=== PATIENT | female | born 1945 | race African-American/Black ===

== ENCOUNTER 2018-03-04 14:30 | Inpatient (IN) | payer MEDICARE, MEDICAID ==
[~2018-03-04] VITALS: Ht 160 cm; Wt 92.2 kg
[~2018-03-04 14:30] MED LIST: AMLO1TAB12 PO; AMLO1TAB15 PO; ASCO500T3 PO; ASPI-482 PO; CALC-77 PO; CHOL100013 PO; COLC0.6T34 PO; FLAX100017 PO; MIRA25TA PO
[2018-03-04] MEDS ORDERED: ACETAMINOPHEN 325 MG TABLET. PO ONE (16:00)
[2018-03-04] MEDS ORDERED: hydrALAZINE 10 MG TABLET PO ONE (16:15)
--- NOTE | 2018-03-04 16:30 | PHYS DOC ---
Past Medical History Past Medical History: Arthritis, High Cholesterol, Hypertension, Other Additional Past Medical Histor: gout, DJD Past Surgical History: , Other Additional Past Surgical Histo: bilateral bunionectomy Alcohol Use: None Drug Use: None Adult General Chief Complaint Chief Complaint: HYPERTENSION HPI HPI 72-year-old female presents to ER with complaints of waking this morning and having a frontal headache. Patient states she also had mild headache on Saturday which had subsided. Patient denies any headache history. Patient denies taking any [id number]-cto-[id number] medications for pain. Patient denies vision changes, dizziness, lightheadedness, confusion, or recent falls/injury. Patient denies chest pain or palpitations, swelling in extremities, shortness of air, or fever/ulcer. Patient reports she has not taken her daily 81 mg aspirin since last week as she had ran out. Patient reports on 12/30/17 she had spinal fusion at [facility] and developed a clot on her esophagus which had to removed. She reports at that time she had low K+. Pt reports at that time she was started on Cozaar 100mg for her HTN and her dose of Coreg was changed to 12.5mg BID. Review of Systems Review of Systems Constitutional: Denies fever or chills. Denies lethargy Eyes: Denies change in visual acuity, redness, or eye pain [] HENT: Denies nasal congestion or sore throat [] Respiratory: Denies cough or shortness of breath [] Cardiovascular: Denies CP/palpitations GI: Denies abdominal pain, nausea, vomiting, bloody stools or diarrhea [] : Denies dysuria or hematuria [] Musculoskeletal: Denies back pain or joint pain [] Integument: Denies rash or skin lesions [] Neurologic: Denies focal weakness or sensory changes. Denies dizziness/ lightheadedness. Reports frontal HERNANDEZ All other systems were reviewed and found to be within normal limits, except as documented in this note. Current Medications Current Medications Current Medications Medications (Trade) Dose Ordered Sig/Yaritza Start Time Stop Time Status Last Admin Dose Admin Acetaminophen (Tylenol) 650 mg 1X ONCE 03/04/18 16:00 03/04/18 16:11 DC 03/04/18 16:48 650 MG Hydralazine HCl (Apresoline) 20 mg 1X ONCE 03/04/18 16:15 03/04/18 16:21 DC 03/04/18 16:46 20 MG Allergies Allergies Allergies Coded Allergies Type Severity Reaction Last Updated Verified codeine Allergy Intermediate Rash 04/02/15 No Physical Exam Physical Exam Constitutional: Well developed, well nourished, no acute distress, non-toxic appearance. Clear speech HENT: Normocephalic, atraumatic, bilateral ears normal, mucous membranes pink/ dry, no oral exudates, nose normal.No sinus tenderness. No facial swelling Eyes: 3mm PERRLA, EOMI- no eye pain with movements, no nystagmus, conjunctiva normal, no discharge. [] Neck: Normal range of motion, no tenderness, supple, no stridor. No gross adenopathy. Well healed scar left side of trachea- no swelling/crepitus- nontender on palp. Trachea midline Cardiovascular: Bradycardic heart rate/rhythm, no murmur [] Lungs & Thorax: Bilateral breath sounds clear to auscultation. Resp. equal/ nonlabored Abdomen: Bowel sounds normal, soft, no tenderness, no masses, no pulsatile masses. [] Skin: Warm, dry, no erythema, no rash. [] Back: No tenderness, no CVA tenderness. [] Extremities: No tenderness, no cyanosis, no clubbing, ROM intact, no edema. [] Neurologic: Alert and oriented X 3, normal motor function, normal sensory function, no focal deficits noted. [] Psychologic: Affect normal, judgement normal, mood normal. [] Current Patient Data Vital Signs Vital Signs Date Time Temp Pulse Resp B/P (MAP) Pulse Ox O2 Delivery O2 Flow Rate FiO2 03/04/18 16:46 57 226/103 03/04/18 15:30 98.3 18 97 Room Air 98.3 Lab Values Laboratory Tests Test 03/04/18 16:38 03/04/18 17:08 Urine Collection Type Void Urine Color Yellow Urine Clarity Clear Urine pH 6.5 Urine Specific [place] 1.010 Urine Protein Negative mg/dL (NEG-TRACE) Urine Glucose (UA) Negative mg/dL (NEG) Urine Ketones (Stick) Negative mg/dL (NEG) Urine Blood Negative (NEG) Urine Nitrite Negative (NEG) Urine Bilirubin Negative (NEG) Urine Urobilinogen Dipstick 0.2 mg/dL (0.2 mg/dL) Urine Leukocyte Esterase Negative (NEG) Urine RBC Rare /HPF (0-2) Urine WBC Rare /HPF (0-4) Urine Squamous Epithelial Cells Few /LPF Urine Bacteria 0 /HPF (0-FEW) White Blood Count 6.1 x10^3/uL (4.0-11.0) Red Blood Count 3.96 x10^6/uL (3.50-5.40) Hemoglobin 11.8 g/dL (12.0-15.5) L Hematocrit 35.3 % (36.0-47.0) L Mean Corpuscular Volume 89 fL (79-100) Mean Corpuscular Hemoglobin 30 pg (25-35) Mean Corpuscular Hemoglobin Concent 34 g/dL (31-37) Red Cell Distribution Width 17.0 % (11.5-14.5) H Platelet Count 163 x10^3/uL (140-400) Neutrophils (%) (Auto) 50 % (31-73) Lymphocytes (%) (Auto) 40 % (24-48) Monocytes (%) (Auto) 7 % (0-9) Eosinophils (%) (Auto) 2 % (0-3) Basophils (%) (Auto) 1 % (0-3) Neutrophils # (Auto) 3.0 x10^3uL (1.8-7.7) Lymphocytes # (Auto) 2.5 x10^3/uL (1.0-4.8) Monocytes # (Auto) 0.4 x10^3/uL (0.0-1.1) Eosinophils # (Auto) 0.1 x10^3/uL (0.0-0.7) Basophils # (Auto) 0.0 x10^3/uL (0.0-0.2) Prothrombin Time 13.9 SEC (11.7-14.0) Prothrombin Time INR 1.1 (0.8-1.1) PTT 29 SEC (24-38) Sodium Level 142 mmol/L (136-145) Potassium Level 3.6 mmol/L (3.5-5.1) Chloride Level 107 mmol/L (98-107) Carbon Dioxide Level 28 mmol/L (21-32) Anion Gap 7 (6-14) Blood Urea Nitrogen 11 mg/dL (7-20) Creatinine 1.1 mg/dL (0.6-1.0) H Estimated GFR (Cockcroft-Gault) 59.2 BUN/Creatinine Ratio 10 (6-20) Glucose Level 87 mg/dL (70-99) Calcium Level 9.1 mg/dL (8.5-10.1) Magnesium Level Pending Total Bilirubin Pending Aspartate Amino Transferase (AST) Pending Alanine Aminotransferase (ALT) Pending Alkaline Phosphatase Pending Total Protein Pending Albumin Pending Albumin/Globulin Ratio Pending Laboratory Tests 03/04/18 17:08 Laboratory Tests 03/04/18 17:08 EKG EKG [] Radiology/Procedures Radiology/Procedures [] Course & Med Decision Making Course & Med Decision Making Pertinent Labs and Imaging studies reviewed. (See chart for details) On initial exam pt had BP recheck of 210/95 with HR from 48-52 on echo technologist. This was discussed with Dr. Hope. IV hydralazine is unavailable and so 20mg PO Hydralazine was ordered. Dragon Disclaimer Dragon Disclaimer This electronic medical record was generated, in whole or in part, using a voice recognition dictation system. Departure Departure Impression: Primary Impression: Headache Additional Impression: Hypertension Disposition: ADMITTED INPATIENT Admitting Physician: Alise De Santiago Condition: STABLE Referrals: CURTIS ANDERSON DO (PCP) Problem Qualifiers LESLIE STOLL APRN Mar 04, 2018 16:30
[2018-03-04 16:54] LABS: BILIRUBIN,URINE NEGATIVE (NEG); CLARITY,URINE CLEAR; COLOR,URINE YELLOW; NITRITE,URINE NEGATIVE (NEG); PH,URINE 6.5; PROTEIN,URINE NEGATIVE (NEG-TRACE); UROBILINOGEN,URINE 0.2 mg/dL (0.2 mg/dL)
--- NOTE | 2018-03-04 16:59 | EKG ---
[facility] [address] [place] [address] Test Date: 2018-03-04 Test Time: 16:30:11 Pat Name: COREY ORANTES Department: Room: Gender: F Parts Salesman: INDRA : 1945 Requested By: LESLIE STOLL Order Number: [id number] Reading MD: Bang Vázquez MD Measurements Intervals [place] Rate: 49 P: AR: QRS: -21 QRSD: 80 T: 17 QT: 436 QTc: 396 Interpretive Statements SR Electronically Signed On 03-06-2018 13:40:06 CDT by Bang Vázquez MD
[2018-03-04 17:04] LABS: BACTERIA,URINE 0 /HPF (0-FEW); RBC,URINE RARE /HPF (0-2); SQUAMOUS EPITHELIAL CELL,UR FEW /LPF; WBC,URINE RARE /HPF (0-4)
--- NOTE | 2018-03-04 17:15 | RAD ---
PQRS Compliance statement: One or more of the following individualized dose reduction techniques were utilized for this examination: 1. Automated exposure control. 2. Adjustment of the mA and/or kV according to patient size. 3. Use of iterative reconstruction technique. Indication:SEVERE HEADACHE, NO PRIORS TECHNIQUE: CT head without IV contrast COMPARISON:None FINDINGS: No pathologic extra-axial or intra-axial fluid collection. The ventricles and basal cisterns are within normal limits. No acute intracranial bleed. Mild periventricular white matter low-attenuation is seen. No focal loss of caban-white differentiation. Orbits within normal limits. No suspicious calvarial lesion. Diffuse bilateral atherosclerotic calcifications of the cavernous segments of the ICA. Visualized paranasal sinuses and mastoid air cells are clear. IMPRESSION: 1. No acute intracranial process. If concern for acute ischemic stroke is high, please consider MRI brain. 2. Mild periventricular white matter changes most likely secondary to chronic microvascular ischemic disease. Electronically signed by: Silvano Hardwick DO (03/04/2018 5:12 PM) [facility]
[2018-03-04 17:19] LABS: BASO % 1 % (0-3); EOS # 0.1 x10^3/uL (0.0-0.7); EOS % 2 % (0-3); HEMATOCRIT 35.3 % (36.0-47.0); HEMOGLOBIN 11.8 g/dL (12.0-15.5); LYMPH # 2.5 x10^3/uL (1.0-4.8); LYMPH % 40 % (24-48); MEAN CORPUSCULAR HEMOGLOBIN 30 pg (25-35); MEAN CORPUSCULAR HGB CONC 34 g/dL (31-37); MEAN CORPUSCULAR VOLUME 89 fL (79-100); MONO # 0.4 x10^3/uL (0.0-1.1); MONO % 7 % (0-9); NEUT % 50 % (31-73); PLATELET COUNT 163 x10^3/uL (140-400); RED BLOOD COUNT 3.96 x10^6/uL (3.50-5.40); WHITE BLOOD COUNT 6.1 x10^3/uL (4.0-11.0)
[2018-03-04 17:26] LABS: PROTHROMBIN TIME PATIENT 13.9 SEC (11.7-14.0)
[2018-03-04 17:40] LABS: CALCIUM 9.1 mg/dL (8.5-10.1); CREATININE 1.1 mg/dL (0.6-1.0); GFR 59.2; POTASSIUM 3.6 mmol/L (3.5-5.1)
[2018-03-04 17:45] LABS: ALBUMIN 3.4 g/dL (3.4-5.0); ALBUMIN/GLOBULIN RATIO 0.8 (1.0-1.7); MAGNESIUM 1.6 mg/dL (1.8-2.4); TOTAL BILIRUBIN 1.1 mg/dL (0.2-1.0); TOTAL PROTEIN 7.5 g/dL (6.4-8.2)
[2018-03-04 17:52] LABS: FREE T4 0.98 ng/dL (0.76-1.46); THYROID STIM HORMONE (TSH) 1.852 uIU/mL (0.358-3.74)
[2018-03-04] MEDS ORDERED: ONDANSETRON PF 4 MG/2 ML VIAL. IV PRN (19:00)
[2018-03-04] MEDS ORDERED: ACETAMINOPHEN 500 MG TABLET PO PRN (19:00)
[2018-03-04] MEDS ORDERED: ONDANSETRON ODT 4 MG TAB.RAPDIS. PO PRN (19:00)
[2018-03-04] MEDS ORDERED: TEMAZEPAM 7.5 MG CAPSULE PO PRN (19:00)
--- NOTE | 2018-03-04 19:06 | PDOC1 ---
History and Physical Date of Admission Date of Admission DATE: 03/04/18 TIME: 19:00 Identification/Chief Complaint Chief Complaint High blood pressure Source Source: Caregiver, Chart review, Patient History of Present Illness History of Present Illness Pleasant 72-year-old -[place] female, looks younger than stated age, history of high blood pressure, compliant to meds. She claims her PCP has been playing already blood pressure because her blood pressure is not that ideal. She claims usually they just let her sit down in the office have her rest and her blood pressure becomes good. She claims previously was on Exforge with good control but that was substituted with something else. She mentions being previously on HCTZ and that is ow replaced with losartan. Also mentions being on Norvasc but sounds like because of leg swelling that was discontinued. She is on coreg 12.5 twice a day, vitamin D3, not taking any more myrbetiq, PPI statin, and losartan. She just had an echocardiogram October. She sees her PCP, no cards. No symptoms with the high blood pressure. Initially blood pressure was over, 200s on admission now down to 190 systolic after hydralazine by mouth. Wants to go home tmr. lAbs, chest x-ray, EKG otherwise unremarkable Past Medical History Cardiovascular: HTN Pulmonary: No pertinent hx GI: No pertinent hx Heme/Onc: No pertinent hx Musculoskeletal: low back pain Rheumatologic: Gout Infectious disease: No pertinent hx Past Surgical History Past Surgical History: No pertinent history Family History Family History: No Significant, High Cholestrol, Hypertension Social History Smoke: No ALCOHOL: none Drugs: None Current Problem List Problem List Problems Medical Problems: (1) Headache Status: Acute (2) Hypertension Status: Acute Current Medications Current Medications Current Medications Acetaminophen (Tylenol) 650 mg 1X ONCE PO Last administered on 03/04/18at 16:48 ; Start 03/04/18 at 16:00; Stop 03/04/18 at 16:11; Status DC Hydralazine HCl (Apresoline) 20 mg 1X ONCE PO Last administered on 03/04/18at 16:46; Start 03/04/18 at 16:15; Stop 03/04/18 at 16:21; Status DC Acetaminophen (Tylenol) 500 mg PRN Q6HRS PRN PO MILD PAIN / TEMP; Start at 19:00; Status UNV Ondansetron HCl (Zofran) 4 mg PRN Q6HRS PRN IV NAUSEA/VOMITING; Start 03/04/18 at 19:00; Status UNV Ondansetron HCl (Zofran Odt) 4 mg PRN Q6HRS PRN PO NAUSEA/VOMITING; Start 03/04 at 19:00; Status UNV Tramadol HCl (Ultram) 50 mg PRN Q6HRS PRN PO PAIN; Start 03/04/18 at 19:00; Status UNV Temazepam (Restoril) 7.5 mg PRN QHS PRN PO INSOMNIA; Start 03/04/18 at 19:00; Status UNV Active Scripts Active Colcrys (Colchicine) 0.6 Mg Tablet 0.6 Mg PO DAILY Reported Myrbetriq (Mirabegron) 25 Mg Tab.er.24h 25 Mg PO DAILY Exforge 5-160 Mg Tablet (Amlodipine/Valsartan) 1 Each Tablet 1 Tab PO HS Flax Seed Oil (Flaxseed Oil) 1,000 Mg Capsule 1,000 Mg PO DAILY Aspir 81 (Aspirin) 81 Mg Tablet.dr 1 Tab PO DAILY Calcium + D3 Er Tablet (Calcium Carb & Cit/Vitamin D3) 1 Each Tablet.er 1 Each PO DAILY Vitamin D (Cholecalciferol (Vitamin D3)) 1,000 Unit Capsule 1 Cap PO DAILY Ascorbic Acid 500 Mg Tablet 500 Mg PO DAILY Allergies Allergies: Coded Allergies: codeine (Unverified Allergy, Intermediate, Rash, 04/02/15) ROS Review of System A 14 point ROS was completed with the following noted as positive: Other systems reviewed and negative. \CONSTITUTIONAL: No fever or chills EYES: No recent changes SKIN: No rash or itching CARDIOVASCULAR: No chest pain, syncope, palpitations, or edema RESPIRATORY: No SOB or cough GASTROINTESTINAL: No nausea, vomiting or abdominal pain NEUROLOGICAL: No headaches or weakness ENDOCRINE: No cold or heat intolerance GENITOURINARY: No urgency or frequency of urination MUSCULOSKELETAL: No back pain or joint pain LYMPHATICS: No enlarged lymph nodes PSYCHIATRIC: No anxiety or depression Physical Exam General: Alert, Oriented X3, Cooperative, No acute distress HEENT: Atraumatic, PERRLA, EOMI Lungs: Clear to auscultation, Normal air movement Heart: S1S2, RRR, no thrills, no rubs, no gallops, no murmurs Cardiovascular: S1, S2 Abdomen: Normal bowel sounds, Soft, No tenderness, No hepatosplenomegaly, No masses Rectal Exam: not examined PELVIC: Nml ext genitalia Extremities: No clubbing, No cyanosis, No edema, Normal pulses, No tenderness/ swelling Skin: No rashes, No breakdown, No significant lesion Neuro: Normal gait, Normal speech, Strength at 5/5 X4 ext, Normal tone, Sensation intact, Cranial nerves 3-12 NL, Reflexes 2+ Psych/Mental Status: Mental status NL, Mood NL Vitals Vitals Vital Signs Date Time Temp Pulse Resp B/P (MAP) Pulse Ox O2 Delivery O2 Flow Rate FiO2 03/04/18 16:46 57 226/103 03/04/18 15:30 98.3 18 97 Room Air 98.3 Labs Labs Laboratory Tests Test 03/04/18 16:38 03/04/18 17:08 Urine Collection Type Void Urine Color Yellow Urine Clarity Clear Urine pH 6.5 Urine Specific [place] 1.010 Urine Protein Negative mg/dL (NEG-TRACE) Urine Glucose (UA) Negative mg/dL (NEG) Urine Ketones (Stick) Negative mg/dL (NEG) Urine Blood Negative (NEG) Urine Nitrite Negative (NEG) Urine Bilirubin Negative (NEG) Urine Urobilinogen Dipstick 0.2 mg/dL (0.2 mg/dL) Urine Leukocyte Esterase Negative (NEG) Urine RBC Rare /HPF (0-2) Urine WBC Rare /HPF (0-4) Urine Squamous Epithelial Cells Few /LPF Urine Bacteria 0 /HPF (0-FEW) White Blood Count 6.1 x10^3/uL (4.0-11.0) Red Blood Count 3.96 x10^6/uL (3.50-5.40) Hemoglobin 11.8 g/dL (12.0-15.5) Hematocrit 35.3 % (36.0-47.0) Mean Corpuscular Volume 89 fL (79-100) Mean Corpuscular Hemoglobin 30 pg (25-35) Mean Corpuscular Hemoglobin Concent 34 g/dL (31-37) Red Cell Distribution Width 17.0 % (11.5-14.5) Platelet Count 163 x10^3/uL (140-400) Neutrophils (%) (Auto) 50 % (31-73) Lymphocytes (%) (Auto) 40 % (24-48) Monocytes (%) (Auto) 7 % (0-9) Eosinophils (%) (Auto) 2 % (0-3) Basophils (%) (Auto) 1 % (0-3) Neutrophils # (Auto) 3.0 x10^3uL (1.8-7.7) Lymphocytes # (Auto) 2.5 x10^3/uL (1.0-4.8) Monocytes # (Auto) 0.4 x10^3/uL (0.0-1.1) Eosinophils # (Auto) 0.1 x10^3/uL (0.0-0.7) Basophils # (Auto) 0.0 x10^3/uL (0.0-0.2) Prothrombin Time 13.9 SEC (11.7-14.0) Prothromb Time International Ratio 1.1 (0.8-1.1) Activated Partial Thromboplast Time 29 SEC (24-38) Sodium Level 142 mmol/L (136-145) Potassium Level 3.6 mmol/L (3.5-5.1) Chloride Level 107 mmol/L (98-107) Carbon Dioxide Level 28 mmol/L (21-32) Anion Gap 7 (6-14) Blood Urea Nitrogen 11 mg/dL (7-20) Creatinine 1.1 mg/dL (0.6-1.0) Estimated GFR (Cockcroft-Gault) 59.2 BUN/Creatinine Ratio 10 (6-20) Glucose Level 87 mg/dL (70-99) Calcium Level 9.1 mg/dL (8.5-10.1) Magnesium Level 1.6 mg/dL (1.8-2.4) Total Bilirubin 1.1 mg/dL (0.2-1.0) Aspartate Amino Transf (AST/SGOT) 18 U/L (15-37) Alanine Aminotransferase (ALT/SGPT) 12 U/L (14-59) Alkaline Phosphatase 125 U/L (46-116) Troponin I Quantitative < 0.017 ng/mL (0.000-0.055) JM-Qsx-N-Type Natriuretic Peptide 450 pg/mL (0-124) Total Protein 7.5 g/dL (6.4-8.2) Albumin 3.4 g/dL (3.4-5.0) Albumin/Globulin Ratio 0.8 (1.0-1.7) Thyroid Stimulating Hormone (TSH) 1.852 uIU/mL (0.358-3.74) Free Thyroxine 0.98 ng/dL (0.76-1.46) Laboratory Tests Test 03/04/18 16:38 03/04/18 17:08 Urine Collection Type Void Urine Color Yellow Urine Clarity Clear Urine pH 6.5 Urine Specific [place] 1.010 Urine Protein Negative mg/dL (NEG-TRACE) Urine Glucose (UA) Negative mg/dL (NEG) Urine Ketones (Stick) Negative mg/dL (NEG) Urine Blood Negative (NEG) Urine Nitrite Negative (NEG) Urine Bilirubin Negative (NEG) Urine Urobilinogen Dipstick 0.2 mg/dL (0.2 mg/dL) Urine Leukocyte Esterase Negative (NEG) Urine RBC Rare /HPF (0-2) Urine WBC Rare /HPF (0-4) Urine Squamous Epithelial Cells Few /LPF Urine Bacteria 0 /HPF (0-FEW) White Blood Count 6.1 x10^3/uL (4.0-11.0) Red Blood Count 3.96 x10^6/uL (3.50-5.40) Hemoglobin 11.8 g/dL (12.0-15.5) Hematocrit 35.3 % (36.0-47.0) Mean Corpuscular Volume 89 fL (79-100) Mean Corpuscular Hemoglobin 30 pg (25-35) Mean Corpuscular Hemoglobin Concent 34 g/dL (31-37) Red Cell Distribution Width 17.0 % (11.5-14.5) Platelet Count 163 x10^3/uL (140-400) Neutrophils (%) (Auto) 50 % (31-73) Lymphocytes (%) (Auto) 40 % (24-48) Monocytes (%) (Auto) 7 % (0-9) Eosinophils (%) (Auto) 2 % (0-3) Basophils (%) (Auto) 1 % (0-3) Neutrophils # (Auto) 3.0 x10^3uL (1.8-7.7) Lymphocytes # (Auto) 2.5 x10^3/uL (1.0-4.8) Monocytes # (Auto) 0.4 x10^3/uL (0.0-1.1) Eosinophils # (Auto) 0.1 x10^3/uL (0.0-0.7) Basophils # (Auto) 0.0 x10^3/uL (0.0-0.2) Prothrombin Time 13.9 SEC (11.7-14.0) Prothromb Time International Ratio 1.1 (0.8-1.1) Activated Partial Thromboplast Time 29 SEC (24-38) Sodium Level 142 mmol/L (136-145) Potassium Level 3.6 mmol/L (3.5-5.1) Chloride Level 107 mmol/L (98-107) Carbon Dioxide Level 28 mmol/L (21-32) Anion Gap 7 (6-14) Blood Urea Nitrogen 11 mg/dL (7-20) Creatinine 1.1 mg/dL (0.6-1.0) Estimated GFR (Cockcroft-Gault) 59.2 BUN/Creatinine Ratio 10 (6-20) Glucose Level 87 mg/dL (70-99) Calcium Level 9.1 mg/dL (8.5-10.1) Magnesium Level 1.6 mg/dL (1.8-2.4) Total Bilirubin 1.1 mg/dL (0.2-1.0) Aspartate Amino Transf (AST/SGOT) 18 U/L (15-37) Alanine Aminotransferase (ALT/SGPT) 12 U/L (14-59) Alkaline Phosphatase 125 U/L (46-116) Troponin I Quantitative < 0.017 ng/mL (0.000-0.055) DJ-Xhx-D-Type Natriuretic Peptide 450 pg/mL (0-124) Total Protein 7.5 g/dL (6.4-8.2) Albumin 3.4 g/dL (3.4-5.0) Albumin/Globulin Ratio 0.8 (1.0-1.7) Thyroid Stimulating Hormone (TSH) 1.852 uIU/mL (0.358-3.74) Free Thyroxine 0.98 ng/dL (0.76-1.46) VTE Prophylaxis Ordered VTE Prophylaxis Devices: Yes VTE Pharmacological Prophylaxi: Yes Assessment/Plan Assessment/Plan HTN emergency POA-systolic was greater than 220s on admission now better-need to bring down the blood pressure in the next 24 hours Dyslipidemia on a statin GERD on PPI Vitamin D insufficiency on vitamin D supplements History of clot in the esophagus-finished OAC History of spinal fusion in December, [place] hypokal Plan control BP Replace K orally home meds have been reconciled If this remains uncontrolled might need a third agent as she is already maxed out mostly on her 2 BP meds Echocardiogram or cardiology has been consulted Resume PPI and a statin Further recs pending above course LARISA LIPSCOMB MD Mar 04, 2018 19:06
[2018-03-04] MEDS: traMADol 50 MG TABLET PO PRN (19:29)
[2018-03-04 20:20] VITALS: BP 196/79
[2018-03-04] MEDS ORDERED: OXYB5TAB7 PO (21:00)
[2018-03-04] MEDS ORDERED: PANT20TA2 PO (21:00)
[2018-03-04] MEDS ORDERED: CARV12.52 PO (21:00)
[2018-03-04] MEDS ORDERED: SIMVASTATIN 40 MG TABLET. PO SCH (21:00)
[2018-03-04] MEDS ORDERED: LOSA100T7 PO (21:00)
[2018-03-04] MEDS ORDERED: ATOR40TA59 PO (21:00)
[2018-03-04] MEDS ORDERED: AMLODIPINE PO SCH (21:00)
[2018-03-04] MEDS ORDERED: ALLO300T PO (21:00)
[2018-03-04] MEDS ORDERED: VALSARTAN PO SCH (21:00)
[2018-03-04] MEDS: ENALAPRILAT 1.25 MG/ML VIAL. IVP PRN (21:30)
[2018-03-04 23:00] VITALS: BP 179/85
[2018-03-05 03:00] VITALS: BP 124/70
[2018-03-05 07:00] VITALS: BP 194/76
[2018-03-05] MEDS: ALLOPURINOL 300 MG TABLET. PO SCH (08:42)
[2018-03-05] MEDS: ASCORBIC ACID 500 MG TABLET PO SCH (08:43)
[2018-03-05] MEDS: LOSARTAN POTASSIUM 50 MG TABLET. PO SCH (08:43)
[2018-03-05] MEDS: CHOLECALCIFEROL (VITAMIN D3) 1,000 UNIT TABLET PO SCH (08:43)
[2018-03-05] MEDS: ASPIRIN ENTERIC COATED 81 MG TABLET.DR. PO SCH (08:43)
[2018-03-05] MEDS: PANTOPRAZOLE 40 MG TABLET.DR. PO SCH (08:43)
[2018-03-05] MEDS: traMADol 50 MG TABLET PO PRN ×2 (08:44→22:55)
[2018-03-05] MEDS: CARVEDILOL 12.5 MG TABLET. PO SCH ×2 (08:44→16:36)
[2018-03-05] MEDS: ENALAPRILAT 1.25 MG/ML VIAL. IVP PRN (08:45)
[2018-03-05] MEDS ORDERED: NON FORMULARY ITEM (Mirabegron (Myrbetriq) 25 MG) PO SCH (09:00)
[2018-03-05] MEDS ORDERED: CHOLECALCIFEROL (VITAMIN D3) 1,000 UNIT TABLET PO SCH (09:00)
[2018-03-05] MEDS ORDERED: NON FORMULARY ITEM (Cholecalciferol (Vitamin D3) (Vitamin D) 1 CAP) PO SCH (09:00)
[2018-03-05] MEDS ORDERED: NON FORMULARY ITEM (Flaxseed Oil (Flax Seed Oil) 1,000 MG) PO SCH (09:00)
[2018-03-05] MEDS ORDERED: COLCHICINE 0.6 MG TABLET PO SCH (09:00)
[2018-03-05] MEDS ORDERED: amLODIPine BESYLATE 5 MG TABLET PO ONE (09:30)
[2018-03-05 09:49] LABS: CALCIUM 9.6 mg/dL (8.5-10.1); CHOLESTEROL/HDL RATIO 2.2; CREATININE 1.2 mg/dL (0.6-1.0); GFR 53.6; MAGNESIUM 1.7 mg/dL (1.8-2.4); POTASSIUM 3.3 mmol/L (3.5-5.1)
[2018-03-05] MEDS: hydroCHLOROthiazide 25 MG TABLET PO SCH (09:59)
[2018-03-05] MEDS ORDERED: POTASSIUM CHLORIDE 20 MEQ TABLET.ER. PO ONE (10:30)
--- NOTE | 2018-03-05 10:51 | PDOC2 ---
LEAH AYALA KETTLE CHIPPER 03/05/18 1051: CARDIAC CONSULT DATE OF CONSULT Date of Consult DATE: 03/05/18 TIME: 10:45 REASON FOR CONSULT Reason for Consult: Accelerated HTN REFERRING PHYSICIAN Referring Physician: Anyi SOURCE Source: Chart review, Patient HISTORY OF PRESENT ILLNESS HISTORY OF PRESENT ILLNESS This is a pleasant 72 yo female admitted for complains of HERNANDEZ and high BP. Reports that she recently had a successful anterior cervical fusion at [facility] which was done last month. Her neck has not been bothering. Her BP meds was just adjusted recently due to her BP being uncontrolled. Saturday she started having throbbing HERNANDEZ coming from her forhead going to the back of her head. No associated visual or auditory disturbances and no associated nausea or vomiting. 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 She then checked her BP and it was 190s/100s approximately. She took her medications and it got better. This happened again yesterday and was advised by her PCP to go to the hospital. Upon admission her BP remained high. Reports no CP, SOA. Denies any past lupus, renal disease, CAD, CVA and she does watch her salt intake. PAST MEDICAL HISTORY Cardiovascular: HTN, Hyperlipidemia Pulmonary: No pertinent hx CENTRAL NERVOUS SYSTEM: Other (No pertinent history) Musculoskeletal: Osteoarthritis Rheumatologic: Gout ENT: Other (glaucoma) Renal/: Other (OAB) Endocrine: No pertinent hx Dermatology: No pertinent hx PAST SURGICAL HISTORY Past Surgical History: Other (cervical fusion, esophageal clot?removal which developed post op ) FAMILY HISTORY Family History: Coronary Artery Disease (father; SCD sisters), Stroke (mother) SOCIAL HISTORY Smoke: Quit (remotely ) ALCOHOL: none Drugs: None Lives: Alone CURRENT MEDICATIONS CURRENT MEDICATIONS Current Medications Medications (Trade) Dose Ordered Sig/Yaritza Route PRN Reason Start Time Stop Time Status Last Admin Dose Admin Acetaminophen (Tylenol) 650 mg 1X ONCE PO 03/04/18 16:00 03/04/18 16:11 DC 03/04/18 16:48 Hydralazine HCl (Apresoline) 20 mg 1X ONCE PO 03/04/18 16:15 03/04/18 16:21 DC 03/04/18 16:46 Tramadol HCl (Ultram) 50 mg PRN Q6HRS PRN PO PAIN 03/04/18 19:00 03/05/18 08:44 Ascorbic Acid (Vitamin C) 500 mg DAILY PO 03/05/18 09:00 03/05/18 08:43 Aspirin (Ecotrin) 81 mg DAILY PO 03/05/18 09:00 03/05/18 08:43 Losartan Potassium (Cozaar) 100 mg DAILY PO 03/05/18 09:00 03/05/18 08:43 Pantoprazole Sodium (Protonix) 40 mg DAILYAC PO 03/05/18 07:30 03/05/18 08:43 Allopurinol (Zyloprim) 300 mg DAILY PO 03/05/18 09:00 03/05/18 08:42 Carvedilol (Coreg) 12.5 mg BIDWMEALS PO 03/05/18 08:00 03/05/18 08:44 Vitamin D (Vitamin D3) 1,000 unit DAILY PO 03/05/18 09:00 03/05/18 08:43 Enalaprilat (Vasotec Inj) 1.25 mg PRN Q6HRS PRN IVP HYPERTENSION, SEE COMMENTS 03/04/18 21:15 03/05/18 08:45 Hydrochlorothiazide (Hydrodiuril) 25 mg DAILY PO 03/05/18 09:30 03/05/18 09:59 Amlodipine Besylate (Norvasc) 5 mg 1X ONCE PO 03/05/18 09:30 03/05/18 09:31 DC 03/05/18 09:59 ALLERGIES ALLERGIES: Coded Allergies: codeine (Unverified Allergy, Intermediate, Rash, 04/02/15) ROS Review of System 14 point ROS evaluated with pertinent positives noted per HPI PHYSICAL EXAM General: Alert, Oriented X3, Cooperative, No acute distress HEENT: Atraumatic, Mucous membr. moist/pink Lungs: Clear to auscultation, Normal air movement Heart: Regular rate (SR/SB lowest at mid 50s), Normal S1, Normal S2, Other (2/ 6 systolic murmur to LLS border) Abdomen: Soft, No tenderness Extremities: No cyanosis, No edema, No tenderness/swelling, Other Skin: No breakdown, No significant lesion Neuro: Normal speech, Sensation intact Psych/Mental Status: Mental status NL, Mood NL MUSCULOSKELETAL: Osteoarthritic changes both hands VITALS VITALS Vital Signs Date Time Temp Pulse Resp B/P (MAP) Pulse Ox O2 Delivery O2 Flow Rate FiO2 03/05/18 09:59 56 194/76 03/05/18 09:59 Room Air 03/05/18 07:00 98.2 16 96 98.2 LABS Lab: Laboratory Tests Test 03/04/18 16:38 03/04/18 17:08 03/05/18 08:40 Urine Collection Type Void Urine Color Yellow Urine Clarity Clear Urine pH 6.5 Urine Specific [place] 1.010 Urine Protein Negative mg/dL (NEG-TRACE) Urine Glucose (UA) Negative mg/dL (NEG) Urine Ketones (Stick) Negative mg/dL (NEG) Urine Blood Negative (NEG) Urine Nitrite Negative (NEG) Urine Bilirubin Negative (NEG) Urine Urobilinogen Dipstick 0.2 mg/dL (0.2 mg/dL) Urine Leukocyte Esterase Negative (NEG) Urine RBC Rare /HPF (0-2) Urine WBC Rare /HPF (0-4) Urine Squamous Epithelial Cells Few /LPF Urine Bacteria 0 /HPF (0-FEW) White Blood Count 6.1 x10^3/uL (4.0-11.0) Red Blood Count 3.96 x10^6/uL (3.50-5.40) Hemoglobin 11.8 g/dL (12.0-15.5) Hematocrit 35.3 % (36.0-47.0) Mean Corpuscular Volume 89 fL (79-100) Mean Corpuscular Hemoglobin 30 pg (25-35) Mean Corpuscular Hemoglobin Concent 34 g/dL (31-37) Red Cell Distribution Width 17.0 % (11.5-14.5) Platelet Count 163 x10^3/uL (140-400) Neutrophils (%) (Auto) 50 % (31-73) Lymphocytes (%) (Auto) 40 % (24-48) Monocytes (%) (Auto) 7 % (0-9) Eosinophils (%) (Auto) 2 % (0-3) Basophils (%) (Auto) 1 % (0-3) Neutrophils # (Auto) 3.0 x10^3uL (1.8-7.7) Lymphocytes # (Auto) 2.5 x10^3/uL (1.0-4.8) Monocytes # (Auto) 0.4 x10^3/uL (0.0-1.1) Eosinophils # (Auto) 0.1 x10^3/uL (0.0-0.7) Basophils # (Auto) 0.0 x10^3/uL (0.0-0.2) Prothrombin Time 13.9 SEC (11.7-14.0) Prothromb Time International Ratio 1.1 (0.8-1.1) Activated Partial Thromboplast Time 29 SEC (24-38) Sodium Level 142 mmol/L (136-145) 144 mmol/L (136-145) Potassium Level 3.6 mmol/L (3.5-5.1) 3.3 mmol/L (3.5-5.1) Chloride Level 107 mmol/L (98-107) 107 mmol/L (98-107) Carbon Dioxide Level 28 mmol/L (21-32) 29 mmol/L (21-32) Anion Gap 7 (6-14) 8 (6-14) Blood Urea Nitrogen 11 mg/dL (7-20) 11 mg/dL (7-20) Creatinine 1.1 mg/dL (0.6-1.0) 1.2 mg/dL (0.6-1.0) Estimated GFR (Cockcroft-Gault) 59.2 53.6 BUN/Creatinine Ratio 10 (6-20) Glucose Level 87 mg/dL (70-99) 113 mg/dL (70-99) Calcium Level 9.1 mg/dL (8.5-10.1) 9.6 mg/dL (8.5-10.1) Magnesium Level 1.6 mg/dL (1.8-2.4) 1.7 mg/dL (1.8-2.4) Total Bilirubin 1.1 mg/dL (0.2-1.0) Aspartate Amino Transf (AST/SGOT) 18 U/L (15-37) Alanine Aminotransferase (ALT/SGPT) 12 U/L (14-59) Alkaline Phosphatase 125 U/L (46-116) Troponin I Quantitative < 0.017 ng/mL (0.000-0.055) HS-Efv-Z-Type Natriuretic Peptide 450 pg/mL (0-124) Total Protein 7.5 g/dL (6.4-8.2) Albumin 3.4 g/dL (3.4-5.0) Albumin/Globulin Ratio 0.8 (1.0-1.7) Thyroid Stimulating Hormone (TSH) 1.852 uIU/mL (0.358-3.74) Free Thyroxine 0.98 ng/dL (0.76-1.46) Triglycerides Level 41 mg/dL (0-150) Cholesterol Level 112 mg/dL (0-200) LDL Cholesterol, Calculated 53 mg/dL (0-100) VLDL Cholesterol, Calculated 8 mg/dL (0-40) Non-HDL Cholesterol Calculated 61 mg/dL (0-129) HDL Cholesterol 51 mg/dL (40-60) Cholesterol/HDL Ratio 2.2 ASSESSMENT/PLAN ASSESSMENT/PLAN 1. Accelerated HTN with HERNANDEZ: remains labile 2. HLP: lipids on goal 3. Hypokalemia/hypomagnesemia 4. S/P ACDF: last month Recommendations 1. TTE. Renal duplex pending. 2. Continue with current HCTZ, losartan and coreg. Start norvasc 10 mg. Will not be able to titrate coreg further for risk of bradycardia 3. Continue with ASA and statin. Replace K and Mg. Further adjustment to BP regimen once diagnostics are completed MARINO OZUNA MD 03/05/18 1628: CARDIAC CONSULT ASSESSMENT/PLAN ASSESSMENT/PLAN Patient seen and examined. Agree with DISTRICT SUPERVISOR's assessment and plan. Headache secondary to accelerated hypertension Agree with starting Norvasc for better blood pressure control 2-D echo showed normal LV function and renal arterial duplex scan did not show any significant renal artery stenosis Replace potassium and magnesium Thank you for your consultation LEAH AYALA APRN Mar 05, 2018 10:51 MARINO OZUNA MD Mar 05, 2018 16:28
[2018-03-05 11:00] VITALS: BP 141/68
[2018-03-05] MEDS ORDERED: MAGNESIUM SULFATE 2GM 50 ML IV ONE (11:00)
--- NOTE | 2018-03-05 11:48 | CARD ---
MR#: [id number] Date of Study: 03/05/2018 Ordering Physician: LEAH AYALA, Referring Physician: LARISA LIPSCOMB Tech: Chelsi Romero BEAU APPROVED REPORT EXAM: Two-dimensional and M-mode echocardiogram with Doppler and color Doppler. Other Information Quality : Good INDICATION Hypertension/HCVD 2D DIMENSIONS RVDd2.4 (2.9-3.5cm)Left Atrium(2D)3.2 (1.6-4.0cm) IVSd0.9 (0.7-1.1cm)Aortic Root(2D)3.1 (2.0-3.7cm) LVDd4.4 (3.9-5.9cm)LVOT Diameter1.9 (1.8-2.4cm) PWd0.8 (0.7-1.1cm)LVDs3.0 (2.5-4.0cm) FS (%) 32.5 %SV54.8 ml LVEF(%)60.0 (>50%) Aortic Valve AoV Peak Bo.140.2cm/sAoV VTI30.2cm AO Peak GR.7.9mmHgLVOT VTI 25.31cm AO Mean GR.4mmHgAVA (VTI)2.50cm2 Mitral Valve MV E Xnnyqmhs30.0cm/sMV DECEL [id number] MV A Xzpzrbtw25.0cm/sE/A Ratio1.0 TDI Lateral E' P. V11.20cm/sMedial E' P. V5.41cm/s E/Lateral E'7.3E/Medial E'15.2 Tricuspid Valve TR P. Qxkiuiis288kg/sRAP LTCLCROP7noPj TR Peak Gr.20vaVhGJTL36vjNe Pulmonary Vein S1 Zakzzgfs71.9cm/sS2 Zxlouorq29.17cm/s D2 Dbgkkqsc66.2cm/s LEFT VENTRICLE The left ventricle is normal size. There is normal left ventricular wall thickness. The left ventricu lar systolic function is normal and the ejection fraction is within normal range. The Ejection Fracti on is 55-60%. There is normal LV segmental wall motion. Transmitral Doppler flow pattern is Grade I-a bnormal relaxation pattern. RIGHT VENTRICLE The right ventricle is normal size. The right ventricular systolic function is normal. ATRIA The left atrium size is normal. The right atrium size is normal. The interatrial septum is intact wit h no evidence for an atrial septal defect or patent foramen ovale as noted on 2-D or Doppler imaging. AORTIC VALVE The aortic valve is calcified but opens well. Doppler and Color Flow revealed no significant aortic r egurgitation. There is no significant aortic valvular stenosis. MITRAL VALVE The mitral valve is calcified but opens well. There is no evidence of mitral valve prolapse. There is no mitral valve stenosis. Doppler and Color-flow revealed trace to mild mitral regurgitation. TRICUSPID VALVE The tricuspid valve is normal in structure and function. Doppler and Color Flow revealed mild tricusp id regurgitation. There is mild pulmonary hypertension. The PA pressure was estimated at 35 mmHg. The re is no tricuspid valve stenosis. PULMONIC VALVE The pulmonic valve is not well visualized. Doppler and Color Flow revealed no pulmonic valvular regur gitation. There is no pulmonic valvular stenosis. GREAT VESSELS The aortic root is normal in size. The ascending aorta is normal in size. The IVC is normal in size a nd collapses >50% with inspiration. PERICARDIAL EFFUSION There is no evidence of significant pericardial effusion. Critical Notification Critical Value: No <Conclusion> The left ventricular systolic function is normal and the ejection fraction is within normal range. Th e Ejection Fraction is 55-60%. There is normal LV segmental wall motion. Doppler and Color Flow revealed mild tricuspid regurgitation. There is mild pulmonary hypertension. T he PA pressure was estimated at 35 mmHg. Signed by : Bang Vázquez, Electronically Approved : 03/05/2018 11:48:01
--- NOTE | 2018-03-05 13:20 | PDOC ---
PROGRESS NOTES Chief Complaint Chief Complaint HTN emergency POA-systolic was greater than 220s on admission now better-need to bring down the blood pressure in the next 24 hours Dyslipidemia on a statin GERD on PPI Vitamin D insufficiency on vitamin D supplements History of clot in the esophagus-finished OAC History of spinal fusion in December, [place] hypokal History of Present Illness History of Present Illness systolic blood pressure was 190s hence I restarted her home HCTZ 25 and Norvasc 5 which was she was previously put on but DC'd by PCP when they were shifting around her blood pressure regimen No headache Just had an MPI? or echo? I did order Renal sono to r.o ZEINAB She is compliant with meds at home NO CP SBP now latest 140s PLAN:I did start norvasc and HCTZ BUt we do not want to lower down too much ff up cardiac tests ff up BP - not ready to dc yet (labile BP) Vitals Vitals Vital Signs Date Time Temp Pulse Resp B/P (MAP) Pulse Ox O2 Delivery O2 Flow Rate FiO2 03/05/18 11:00 98.1 57 18 141/68 (92) 97 Room Air 98.1 Physical Exam General: Alert, Oriented X3, Cooperative, No acute distress Heart: Regular rate (SR/SB lowest at mid 50s), Normal S1, Normal S2, Other (2/ 6 systolic murmur to LLS border) Abdomen: Soft, No tenderness Extremities: No cyanosis, No edema, No tenderness/swelling, Other Skin: No breakdown, No significant lesion Labs LABS Laboratory Tests Test 03/04/18 16:38 03/04/18 17:08 03/05/18 08:40 Urine Collection Type Void Urine Color Yellow Urine Clarity Clear Urine pH 6.5 Urine Specific [place] 1.010 Urine Protein Negative mg/dL (NEG-TRACE) Urine Glucose (UA) Negative mg/dL (NEG) Urine Ketones (Stick) Negative mg/dL (NEG) Urine Blood Negative (NEG) Urine Nitrite Negative (NEG) Urine Bilirubin Negative (NEG) Urine Urobilinogen Dipstick 0.2 mg/dL (0.2 mg/dL) Urine Leukocyte Esterase Negative (NEG) Urine RBC Rare /HPF (0-2) Urine WBC Rare /HPF (0-4) Urine Squamous Epithelial Cells Few /LPF Urine Bacteria 0 /HPF (0-FEW) White Blood Count 6.1 x10^3/uL (4.0-11.0) Red Blood Count 3.96 x10^6/uL (3.50-5.40) Hemoglobin 11.8 g/dL (12.0-15.5) Hematocrit 35.3 % (36.0-47.0) Mean Corpuscular Volume 89 fL (79-100) Mean Corpuscular Hemoglobin 30 pg (25-35) Mean Corpuscular Hemoglobin Concent 34 g/dL (31-37) Red Cell Distribution Width 17.0 % (11.5-14.5) Platelet Count 163 x10^3/uL (140-400) Neutrophils (%) (Auto) 50 % (31-73) Lymphocytes (%) (Auto) 40 % (24-48) Monocytes (%) (Auto) 7 % (0-9) Eosinophils (%) (Auto) 2 % (0-3) Basophils (%) (Auto) 1 % (0-3) Neutrophils # (Auto) 3.0 x10^3uL (1.8-7.7) Lymphocytes # (Auto) 2.5 x10^3/uL (1.0-4.8) Monocytes # (Auto) 0.4 x10^3/uL (0.0-1.1) Eosinophils # (Auto) 0.1 x10^3/uL (0.0-0.7) Basophils # (Auto) 0.0 x10^3/uL (0.0-0.2) Prothrombin Time 13.9 SEC (11.7-14.0) Prothromb Time International Ratio 1.1 (0.8-1.1) Activated Partial Thromboplast Time 29 SEC (24-38) Sodium Level 142 mmol/L (136-145) 144 mmol/L (136-145) Potassium Level 3.6 mmol/L (3.5-5.1) 3.3 mmol/L (3.5-5.1) Chloride Level 107 mmol/L (98-107) 107 mmol/L (98-107) Carbon Dioxide Level 28 mmol/L (21-32) 29 mmol/L (21-32) Anion Gap 7 (6-14) 8 (6-14) Blood Urea Nitrogen 11 mg/dL (7-20) 11 mg/dL (7-20) Creatinine 1.1 mg/dL (0.6-1.0) 1.2 mg/dL (0.6-1.0) Estimated GFR (Cockcroft-Gault) 59.2 53.6 BUN/Creatinine Ratio 10 (6-20) Glucose Level 87 mg/dL (70-99) 113 mg/dL (70-99) Calcium Level 9.1 mg/dL (8.5-10.1) 9.6 mg/dL (8.5-10.1) Magnesium Level 1.6 mg/dL (1.8-2.4) 1.7 mg/dL (1.8-2.4) Total Bilirubin 1.1 mg/dL (0.2-1.0) Aspartate Amino Transf (AST/SGOT) 18 U/L (15-37) Alanine Aminotransferase (ALT/SGPT) 12 U/L (14-59) Alkaline Phosphatase 125 U/L (46-116) Troponin I Quantitative < 0.017 ng/mL (0.000-0.055) JV-Ere-N-Type Natriuretic Peptide 450 pg/mL (0-124) Total Protein 7.5 g/dL (6.4-8.2) Albumin 3.4 g/dL (3.4-5.0) Albumin/Globulin Ratio 0.8 (1.0-1.7) Thyroid Stimulating Hormone (TSH) 1.852 uIU/mL (0.358-3.74) Free Thyroxine 0.98 ng/dL (0.76-1.46) Triglycerides Level 41 mg/dL (0-150) Cholesterol Level 112 mg/dL (0-200) LDL Cholesterol, Calculated 53 mg/dL (0-100) VLDL Cholesterol, Calculated 8 mg/dL (0-40) Non-HDL Cholesterol Calculated 61 mg/dL (0-129) HDL Cholesterol 51 mg/dL (40-60) Cholesterol/HDL Ratio 2.2 Review of Systems Review of Systems A 14 point ROS was completed with the following noted as positive: Other systems reviewed and negative. \CONSTITUTIONAL: No fever or chills EYES: No recent changes SKIN: No rash or itching CARDIOVASCULAR: No chest pain, syncope, palpitations, or edema RESPIRATORY: No SOB or cough GASTROINTESTINAL: No nausea, vomiting or abdominal pain NEUROLOGICAL: No headaches or weakness ENDOCRINE: No cold or heat intolerance GENITOURINARY: No urgency or frequency of urination MUSCULOSKELETAL: No back pain or joint pain LYMPHATICS: No enlarged lymph nodes PSYCHIATRIC: No anxiety or depression Assessment and Plan Assessmemt and Plan Problems Medical Problems: (1) Headache Status: Acute (2) Hypertension Status: Acute Comment Review of Relevant I have reviewed the following items gordon (where applicable) has been applied. Labs Laboratory Tests Test 03/04/18 16:38 03/04/18 17:08 03/05/18 08:40 Urine Collection Type Void Urine Color Yellow Urine Clarity Clear Urine pH 6.5 Urine Specific [place] 1.010 Urine Protein Negative mg/dL (NEG-TRACE) Urine Glucose (UA) Negative mg/dL (NEG) Urine Ketones (Stick) Negative mg/dL (NEG) Urine Blood Negative (NEG) Urine Nitrite Negative (NEG) Urine Bilirubin Negative (NEG) Urine Urobilinogen Dipstick 0.2 mg/dL (0.2 mg/dL) Urine Leukocyte Esterase Negative (NEG) Urine RBC Rare /HPF (0-2) Urine WBC Rare /HPF (0-4) Urine Squamous Epithelial Cells Few /LPF Urine Bacteria 0 /HPF (0-FEW) White Blood Count 6.1 x10^3/uL (4.0-11.0) Red Blood Count 3.96 x10^6/uL (3.50-5.40) Hemoglobin 11.8 g/dL (12.0-15.5) Hematocrit 35.3 % (36.0-47.0) Mean Corpuscular Volume 89 fL (79-100) Mean Corpuscular Hemoglobin 30 pg (25-35) Mean Corpuscular Hemoglobin Concent 34 g/dL (31-37) Red Cell Distribution Width 17.0 % (11.5-14.5) Platelet Count 163 x10^3/uL (140-400) Neutrophils (%) (Auto) 50 % (31-73) Lymphocytes (%) (Auto) 40 % (24-48) Monocytes (%) (Auto) 7 % (0-9) Eosinophils (%) (Auto) 2 % (0-3) Basophils (%) (Auto) 1 % (0-3) Neutrophils # (Auto) 3.0 x10^3uL (1.8-7.7) Lymphocytes # (Auto) 2.5 x10^3/uL (1.0-4.8) Monocytes # (Auto) 0.4 x10^3/uL (0.0-1.1) Eosinophils # (Auto) 0.1 x10^3/uL (0.0-0.7) Basophils # (Auto) 0.0 x10^3/uL (0.0-0.2) Prothrombin Time 13.9 SEC (11.7-14.0) Prothromb Time International Ratio 1.1 (0.8-1.1) Activated Partial Thromboplast Time 29 SEC (24-38) Sodium Level 142 mmol/L (136-145) 144 mmol/L (136-145) Potassium Level 3.6 mmol/L (3.5-5.1) 3.3 mmol/L (3.5-5.1) Chloride Level 107 mmol/L (98-107) 107 mmol/L (98-107) Carbon Dioxide Level 28 mmol/L (21-32) 29 mmol/L (21-32) Anion Gap 7 (6-14) 8 (6-14) Blood Urea Nitrogen 11 mg/dL (7-20) 11 mg/dL (7-20) Creatinine 1.1 mg/dL (0.6-1.0) 1.2 mg/dL (0.6-1.0) Estimated GFR (Cockcroft-Gault) 59.2 53.6 BUN/Creatinine Ratio 10 (6-20) Glucose Level 87 mg/dL (70-99) 113 mg/dL (70-99) Calcium Level 9.1 mg/dL (8.5-10.1) 9.6 mg/dL (8.5-10.1) Magnesium Level 1.6 mg/dL (1.8-2.4) 1.7 mg/dL (1.8-2.4) Total Bilirubin 1.1 mg/dL (0.2-1.0) Aspartate Amino Transf (AST/SGOT) 18 U/L (15-37) Alanine Aminotransferase (ALT/SGPT) 12 U/L (14-59) Alkaline Phosphatase 125 U/L (46-116) Troponin I Quantitative < 0.017 ng/mL (0.000-0.055) DL-Jyd-S-Type Natriuretic Peptide 450 pg/mL (0-124) Total Protein 7.5 g/dL (6.4-8.2) Albumin 3.4 g/dL (3.4-5.0) Albumin/Globulin Ratio 0.8 (1.0-1.7) Thyroid Stimulating Hormone (TSH) 1.852 uIU/mL (0.358-3.74) Free Thyroxine 0.98 ng/dL (0.76-1.46) Triglycerides Level 41 mg/dL (0-150) Cholesterol Level 112 mg/dL (0-200) LDL Cholesterol, Calculated 53 mg/dL (0-100) VLDL Cholesterol, Calculated 8 mg/dL (0-40) Non-HDL Cholesterol Calculated 61 mg/dL (0-129) HDL Cholesterol 51 mg/dL (40-60) Cholesterol/HDL Ratio 2.2 Laboratory Tests Test 03/04/18 16:38 03/04/18 17:08 03/05/18 08:40 Urine Collection Type Void Urine Color Yellow Urine Clarity Clear Urine pH 6.5 Urine Specific [place] 1.010 Urine Protein Negative mg/dL (NEG-TRACE) Urine Glucose (UA) Negative mg/dL (NEG) Urine Ketones (Stick) Negative mg/dL (NEG) Urine Blood Negative (NEG) Urine Nitrite Negative (NEG) Urine Bilirubin Negative (NEG) Urine Urobilinogen Dipstick 0.2 mg/dL (0.2 mg/dL) Urine Leukocyte Esterase Negative (NEG) Urine RBC Rare /HPF (0-2) Urine WBC Rare /HPF (0-4) Urine Squamous Epithelial Cells Few /LPF Urine Bacteria 0 /HPF (0-FEW) White Blood Count 6.1 x10^3/uL (4.0-11.0) Red Blood Count 3.96 x10^6/uL (3.50-5.40) Hemoglobin 11.8 g/dL (12.0-15.5) Hematocrit 35.3 % (36.0-47.0) Mean Corpuscular Volume 89 fL (79-100) Mean Corpuscular Hemoglobin 30 pg (25-35) Mean Corpuscular Hemoglobin Concent 34 g/dL (31-37) Red Cell Distribution Width 17.0 % (11.5-14.5) Platelet Count 163 x10^3/uL (140-400) Neutrophils (%) (Auto) 50 % (31-73) Lymphocytes (%) (Auto) 40 % (24-48) Monocytes (%) (Auto) 7 % (0-9) Eosinophils (%) (Auto) 2 % (0-3) Basophils (%) (Auto) 1 % (0-3) Neutrophils # (Auto) 3.0 x10^3uL (1.8-7.7) Lymphocytes # (Auto) 2.5 x10^3/uL (1.0-4.8) Monocytes # (Auto) 0.4 x10^3/uL (0.0-1.1) Eosinophils # (Auto) 0.1 x10^3/uL (0.0-0.7) Basophils # (Auto) 0.0 x10^3/uL (0.0-0.2) Prothrombin Time 13.9 SEC (11.7-14.0) Prothromb Time International Ratio 1.1 (0.8-1.1) Activated Partial Thromboplast Time 29 SEC (24-38) Sodium Level 142 mmol/L (136-145) 144 mmol/L (136-145) Potassium Level 3.6 mmol/L (3.5-5.1) 3.3 mmol/L (3.5-5.1) Chloride Level 107 mmol/L (98-107) 107 mmol/L (98-107) Carbon Dioxide Level 28 mmol/L (21-32) 29 mmol/L (21-32) Anion Gap 7 (6-14) 8 (6-14) Blood Urea Nitrogen 11 mg/dL (7-20) 11 mg/dL (7-20) Creatinine 1.1 mg/dL (0.6-1.0) 1.2 mg/dL (0.6-1.0) Estimated GFR (Cockcroft-Gault) 59.2 53.6 BUN/Creatinine Ratio 10 (6-20) Glucose Level 87 mg/dL (70-99) 113 mg/dL (70-99) Calcium Level 9.1 mg/dL (8.5-10.1) 9.6 mg/dL (8.5-10.1) Magnesium Level 1.6 mg/dL (1.8-2.4) 1.7 mg/dL (1.8-2.4) Total Bilirubin 1.1 mg/dL (0.2-1.0) Aspartate Amino Transf (AST/SGOT) 18 U/L (15-37) Alanine Aminotransferase (ALT/SGPT) 12 U/L (14-59) Alkaline Phosphatase 125 U/L (46-116) Troponin I Quantitative < 0.017 ng/mL (0.000-0.055) NA-Evr-C-Type Natriuretic Peptide 450 pg/mL (0-124) Total Protein 7.5 g/dL (6.4-8.2) Albumin 3.4 g/dL (3.4-5.0) Albumin/Globulin Ratio 0.8 (1.0-1.7) Thyroid Stimulating Hormone (TSH) 1.852 uIU/mL (0.358-3.74) Free Thyroxine 0.98 ng/dL (0.76-1.46) Triglycerides Level 41 mg/dL (0-150) Cholesterol Level 112 mg/dL (0-200) LDL Cholesterol, Calculated 53 mg/dL (0-100) VLDL Cholesterol, Calculated 8 mg/dL (0-40) Non-HDL Cholesterol Calculated 61 mg/dL (0-129) HDL Cholesterol 51 mg/dL (40-60) Cholesterol/HDL Ratio 2.2 Medications Current Medications Acetaminophen (Tylenol) 650 mg 1X ONCE PO Last administered on 03/04/18at 16:48 ; Start 03/04/18 at 16:00; Stop 03/04/18 at 16:11; Status DC Hydralazine HCl (Apresoline) 20 mg 1X ONCE PO Last administered on 03/04/18at 16:46; Start 03/04/18 at 16:15; Stop 03/04/18 at 16:21; Status DC Acetaminophen (Tylenol) 500 mg PRN Q6HRS PRN PO MILD PAIN / TEMP; Start at 19:00 Ondansetron HCl (Zofran) 4 mg PRN Q6HRS PRN IV NAUSEA/VOMITING; Start 03/04/18 at 19:00 Ondansetron HCl (Zofran Odt) 4 mg PRN Q6HRS PRN PO NAUSEA/VOMITING; Start 03/04 at 19:00 Tramadol HCl (Ultram) 50 mg PRN Q6HRS PRN PO PAIN Last administered on at 08:44; Start 03/04/18 at 19:00 Temazepam (Restoril) 7.5 mg PRN QHS PRN PO INSOMNIA; Start 03/04/18 at 19:00 Ascorbic Acid (Vitamin C) 500 mg DAILY PO Last administered on 03/05/18at 08:43 ; Start 03/05/18 at 09:00 Aspirin (Ecotrin) 81 mg DAILY PO Last administered on 03/05/18at 08:43; Start at 09:00 Colchicine (Colcrys) 0.6 mg DAILY PO ; Start 03/05/18 at 09:00; Stop 03/05/18 at 09:00; Status DC Non-Formulary Medication (Amlodipine/ Valsartan (Exforge 5-160 Mg Tablet)) 1 tab HS PO ; Start 03/04/18 at 21:00; Stop 03/04/18 at 21:00; Status DC Vitamin D (Vitamin D3) 1,000 unit DAILY PO ; Start 03/05/18 at 09:00; Status Cancel Non-Formulary Medication (Cholecalciferol (Vitamin D3) (Vitamin D)) 1 cap DAILY PO ; Start 03/05/18 at 09:00; Stop 03/05/18 at 09:00; Status DC Non-Formulary Medication (Flaxseed Oil (Flax Seed Oil)) 1,000 mg DAILY PO ; Start 03/05/18 at 09:00; Status UNV Non-Formulary Medication (Mirabegron (Myrbetriq)) 25 mg DAILY PO ; Start at 09:00; Stop 03/05/18 at 09:00; Status DC Losartan Potassium (Cozaar) 100 mg DAILY PO Last administered on 03/05/18at 08: 43; Start 03/05/18 at 09:00 Simvastatin (Zocor) 40 mg QHS PO ; Start 03/04/18 at 21:00; Stop 03/05/18 at 11: 13; Status DC Pantoprazole Sodium (Protonix) 40 mg DAILYAC PO Last administered on 03/05/18at 08:43; Start 03/05/18 at 07:30 Allopurinol (Zyloprim) 300 mg DAILY PO Last administered on 03/05/18at 08:42; Start 03/05/18 at 09:00 Carvedilol (Coreg) 12.5 mg BIDWMEALS PO Last administered on 03/05/18at 08:44; Start 03/05/18 at 08:00 Vitamin D (Vitamin D3) 1,000 unit DAILY PO Last administered on 03/05/18at 08:43 ; Start 03/05/18 at 09:00 Enalaprilat (Vasotec Inj) 1.25 mg PRN Q6HRS PRN IVP HYPERTENSION, SEE COMMENTS Last administered on 03/05/18at 08:45; Start 03/04/18 at 21:15 Hydrochlorothiazide (Hydrodiuril) 25 mg DAILY PO Last administered on at 09:59; Start 03/05/18 at 09:30 Amlodipine Besylate (Norvasc) 5 mg 1X ONCE PO Last administered on 03/05/18at 09:59; Start 03/05/18 at 09:30; Stop 03/05/18 at 09:31; Status DC Amlodipine Besylate (Norvasc) 5 mg DAILY PO ; Start 03/06/18 at 09:00; Stop at 09:00; Status DC Potassium Chloride (Klor-Con) 40 meq 1X ONCE PO Last administered on at 10:50; Start 03/05/18 at 10:30; Stop 03/05/18 at 10:31; Status DC Magnesium Sulfate 50 ml @ 25 mls/hr 1X ONCE IV Last administered on 03/05/18at 10:50; Start 03/05/18 at 11:00; Stop 03/05/18 at 12:59; Status DC Amlodipine Besylate (Norvasc) 10 mg DAILY PO ; Start 03/05/18 at 12:00 Atorvastatin Calcium (Lipitor) 20 mg QHS PO ; Start 03/05/18 at 21:00 Active Scripts Active Colcrys (Colchicine) 0.6 Mg Tablet 0.6 Mg PO DAILY Reported Oxybutynin Chloride 5 Mg Tablet 1 Tab PO DAILY Atorvastatin Calcium 40 Mg Tablet 1 Tab PO DAILY Carvedilol 12.5 Mg Tablet 1 Tab PO BID Losartan Potassium 100 Mg Tablet 100 Mg PO DAILY Allopurinol 300 Mg Tablet 1 Tab PO DAILY Protonix (Pantoprazole Sodium) 20 Mg Tablet.dr 40 Mg PO DAILY Myrbetriq (Mirabegron) 25 Mg Tab.er.24h 25 Mg PO DAILY Exforge 5-160 Mg Tablet (Amlodipine/Valsartan) 1 Each Tablet 1 Tab PO HS Flax Seed Oil (Flaxseed Oil) 1,000 Mg Capsule 1,000 Mg PO DAILY Aspir 81 (Aspirin) 81 Mg Tablet. 1 Tab PO DAILY Calcium + D3 Er Tablet (Calcium Carb & Cit/Vitamin D3) 1 Each Tablet.er 1 Each PO DAILY Vitamin D (Cholecalciferol (Vitamin D3)) 1,000 Unit Capsule 2 Cap PO DAILY Ascorbic Acid 500 Mg Tablet 500 Mg PO DAILY Vitals/I & O Vital Sign - Last 24 Hours 03/04/18 03/04/18 03/04/18 03/04/18 15:30 16:10 16:39 16:46 Temp 98.3 98.3 Pulse 51 53 58 57 Resp 18 20 20 B/P (MAP) 215/98 (137) 226/103 Pulse Ox 97 95 96 O2 Delivery Room Air 03/04/18 03/04/18 03/04/18 03/04/18 16:46 17:02 17:10 18:00 Pulse 58 64 59 61 Resp 16 18 18 16 Pulse Ox 96 96 95 96 03/04/18 03/04/18 03/04/18 03/04/18 18:30 19:00 19:29 19:31 Pulse 65 58 61 Resp 16 16 18 16 Pulse Ox 95 97 97 99 O2 Delivery Room Air 03/04/18 03/04/18 03/04/18 03/04/18 20:00 20:20 21:30 23:00 Temp 97.5 97.7 97.5 97.7 Pulse 55 55 62 Resp 16 16 B/P (MAP) 196/79 (118) 196/79 179/85 (116) Pulse Ox 99 98 O2 Delivery Room Air Room Air Room Air 03/05/18 03/05/18 03/05/18 03/05/18 03:00 07:00 07:42 08:43 Temp 97.7 98.2 97.7 98.2 Pulse 66 56 56 Resp 16 16 B/P (MAP) 124/70 (88) 194/76 (115) 194/76 Pulse Ox 98 96 O2 Delivery Room Air Room Air Room Air 03/05/18 03/05/18 03/05/18 03/05/18 08:44 08:44 08:45 09:59 Pulse 56 56 B/P (MAP) 194/76 194/76 O2 Delivery Room Air Room Air 03/05/18 03/05/18 09:59 11:00 Temp 98.1 98.1 Pulse 56 57 Resp 18 B/P (MAP) 194/76 141/68 (92) Pulse Ox 97 O2 Delivery Room Air Intake and Output 03/04/18 03/04/18 03/05/18 15:00 23:00 07:00 Intake Total 100 ml Output Total 100 ml Balance 0 ml LARISA LIPSCOMB MD Mar 05, 2018 13:20
[2018-03-05] MEDS: amLODIPine BESYLATE 10 MG TABLET PO SCH (13:30)
--- NOTE | 2018-03-05 13:58 | RAD ---
Deep Doppler renal ultrasound, 03/05/2018: HISTORY: Hypertension Duplex evaluation of the main renal arteries was performed including grayscale, color-flow and spectral Doppler analysis. The peak systolic velocity in the right main renal artery is 115 cm/s and on the left is 78 cm/s. The renal artery to aortic velocity ratio on the right is 1.5 and on the left is 1.0. These findings do not suggest significant renal artery stenosis. No parvus/tardus phenomena is seen. The right kidney measures 9.4 cm in length while the left kidney measures 10.7 cm. Several small right renal cysts are noted with the largest of these measuring 2.7 cm. The renal parenchymal echogenicity is increased. IMPRESSION: 1. No duplex evidence of significant renal artery stenosis. 2. Echogenic kidneys suggesting medical renal disease. 3. Right renal cysts. Electronically signed by: Dakotah Bajwa MD (03/05/2018 1:55 PM) [facility]
[2018-03-05 15:00] VITALS: BP 145/71
[2018-03-05 19:26] VITALS: BP 140/68
[2018-03-05] MEDS ORDERED: ATORVASTATIN CALCIUM 20 MG TABLET PO SCH (21:00)
[2018-03-05 23:30] VITALS: BP 152/71
[2018-03-06 03:27] VITALS: BP 146/75
[2018-03-06 07:00] VITALS: BP 169/80
[2018-03-06] MEDS ORDERED: amLODIPine BESYLATE 5 MG TABLET PO SCH (09:00)
[2018-03-06] MEDS: hydroCHLOROthiazide 25 MG TABLET PO SCH (09:17)
[2018-03-06] MEDS: PANTOPRAZOLE 40 MG TABLET.DR. PO SCH (09:17)
[2018-03-06] MEDS: CHOLECALCIFEROL (VITAMIN D3) 1,000 UNIT TABLET PO SCH (09:17)
[2018-03-06] MEDS: LOSARTAN POTASSIUM 50 MG TABLET. PO SCH (09:17)
[2018-03-06] MEDS: ALLOPURINOL 300 MG TABLET. PO SCH (09:17)
[2018-03-06] MEDS: ASPIRIN ENTERIC COATED 81 MG TABLET.DR. PO SCH (09:17)
[2018-03-06] MEDS: ASCORBIC ACID 500 MG TABLET PO SCH (09:17)
[2018-03-06] MEDS: CARVEDILOL 12.5 MG TABLET. PO SCH (09:18)
[2018-03-06] MEDS: amLODIPine BESYLATE 10 MG TABLET PO SCH (09:18)
[2018-03-06] MEDS: traMADol 50 MG TABLET PO PRN (09:20)
[2018-03-06] MEDS ORDERED: AMLO10TA6 PO (09:24)
[2018-03-06] MEDS ORDERED: POTA20TA82 PO (09:24)
[2018-03-06] MEDS ORDERED: HYDR25TA9 PO (09:24)
[2018-03-06 11:00] VITALS: BP 161/78
[2018-03-06] MEDS: ENALAPRILAT 1.25 MG/ML VIAL. IVP PRN (13:03)
--- NOTE | 2018-03-06 13:25 | PDOC3 ---
Discharge Summary Visit Information Date of Admission: Mar 04, 2018 Date of Discharge: Mar 06, 2018 Admitting Diagnosis Comment: HTN emergency POA-systolic was greater than 220s on admission now better-need to bring down the blood pressure in the next 24 hours Dyslipidemia on a statin GERD on PPI Vitamin D insufficiency on vitamin D supplements History of clot in the esophagus-finished OAC History of spinal fusion in December, [place] [facility] hypokal Final Diagnosis Problems Medical Problems: (1) Headache Status: Acute (2) Hypertension Status: Acute Brief Hospital Course Allergies Allergies Coded Allergies Type Severity Reaction Last Updated Verified codeine Allergy Intermediate Rash 04/02/15 No Vital Signs Vital Signs Date Time Temp Pulse Resp B/P (MAP) Pulse Ox O2 Delivery O2 Flow Rate FiO2 03/06/18 13:03 60 161/78 03/06/18 11:00 97.5 18 96 Room Air 97.5 Lab Results Laboratory Tests Test 03/04/18 16:38 03/04/18 17:08 03/05/18 08:40 Urine Collection Type Void Urine Color Yellow Urine Clarity Clear Urine pH 6.5 Urine Specific [place] 1.010 Urine Protein Negative mg/dL (NEG-TRACE) Urine Glucose (UA) Negative mg/dL (NEG) Urine Ketones (Stick) Negative mg/dL (NEG) Urine Blood Negative (NEG) Urine Nitrite Negative (NEG) Urine Bilirubin Negative (NEG) Urine Urobilinogen Dipstick 0.2 mg/dL (0.2 mg/dL) Urine Leukocyte Esterase Negative (NEG) Urine RBC Rare /HPF (0-2) Urine WBC Rare /HPF (0-4) Urine Squamous Epithelial Cells Few /LPF Urine Bacteria 0 /HPF (0-FEW) White Blood Count 6.1 x10^3/uL (4.0-11.0) Red Blood Count 3.96 x10^6/uL (3.50-5.40) Hemoglobin 11.8 g/dL (12.0-15.5) Hematocrit 35.3 % (36.0-47.0) Mean Corpuscular Volume 89 fL (79-100) Mean Corpuscular Hemoglobin 30 pg (25-35) Mean Corpuscular Hemoglobin Concent 34 g/dL (31-37) Red Cell Distribution Width 17.0 % (11.5-14.5) Platelet Count 163 x10^3/uL (140-400) Neutrophils (%) (Auto) 50 % (31-73) Lymphocytes (%) (Auto) 40 % (24-48) Monocytes (%) (Auto) 7 % (0-9) Eosinophils (%) (Auto) 2 % (0-3) Basophils (%) (Auto) 1 % (0-3) Neutrophils # (Auto) 3.0 x10^3uL (1.8-7.7) Lymphocytes # (Auto) 2.5 x10^3/uL (1.0-4.8) Monocytes # (Auto) 0.4 x10^3/uL (0.0-1.1) Eosinophils # (Auto) 0.1 x10^3/uL (0.0-0.7) Basophils # (Auto) 0.0 x10^3/uL (0.0-0.2) Prothrombin Time 13.9 SEC (11.7-14.0) Prothromb Time International Ratio 1.1 (0.8-1.1) Activated Partial Thromboplast Time 29 SEC (24-38) Sodium Level 142 mmol/L (136-145) 144 mmol/L (136-145) Potassium Level 3.6 mmol/L (3.5-5.1) 3.3 mmol/L (3.5-5.1) Chloride Level 107 mmol/L (98-107) 107 mmol/L (98-107) Carbon Dioxide Level 28 mmol/L (21-32) 29 mmol/L (21-32) Anion Gap 7 (6-14) 8 (6-14) Blood Urea Nitrogen 11 mg/dL (7-20) 11 mg/dL (7-20) Creatinine 1.1 mg/dL (0.6-1.0) 1.2 mg/dL (0.6-1.0) Estimated GFR (Cockcroft-Gault) 59.2 53.6 BUN/Creatinine Ratio 10 (6-20) Glucose Level 87 mg/dL (70-99) 113 mg/dL (70-99) Calcium Level 9.1 mg/dL (8.5-10.1) 9.6 mg/dL (8.5-10.1) Magnesium Level 1.6 mg/dL (1.8-2.4) 1.7 mg/dL (1.8-2.4) Total Bilirubin 1.1 mg/dL (0.2-1.0) Aspartate Amino Transf (AST/SGOT) 18 U/L (15-37) Alanine Aminotransferase (ALT/SGPT) 12 U/L (14-59) Alkaline Phosphatase 125 U/L (46-116) Troponin I Quantitative < 0.017 ng/mL (0.000-0.055) AY-Pif-K-Type Natriuretic Peptide 450 pg/mL (0-124) Total Protein 7.5 g/dL (6.4-8.2) Albumin 3.4 g/dL (3.4-5.0) Albumin/Globulin Ratio 0.8 (1.0-1.7) Thyroid Stimulating Hormone (TSH) 1.852 uIU/mL (0.358-3.74) Free Thyroxine 0.98 ng/dL (0.76-1.46) Triglycerides Level 41 mg/dL (0-150) Cholesterol Level 112 mg/dL (0-200) LDL Cholesterol, Calculated 53 mg/dL (0-100) VLDL Cholesterol, Calculated 8 mg/dL (0-40) Non-HDL Cholesterol Calculated 61 mg/dL (0-129) HDL Cholesterol 51 mg/dL (40-60) Cholesterol/HDL Ratio 2.2 Brief Hospital Course Ms. Arrington is a 72 old very pleasant -[place] female with known hypertension rather uncontrolled and her PCP is trying to fix that, comes in because of a systolic greater than 200s. We are able to manage with a blood pressure 160s asymptomatic. No chest pain no headache no nape pains. Already on blood pressure meds at home and is compliant - and I do believe her. She is retired from work. We need to add two more medications HCTZ 25 along with potassium supplement that she gets low, and also some Norvasc. She was previously on these medications before but was stopped or at least substituted when her PCP was trying to come up with a good regimen for her BP. Comanage with cardiology. renal US is negative for ZEINAB. Scripts on chart Patient seen and examined Discharge instruction is follow-up PCP 1 month regarding blood pressure Discharge medications on file Procedures performed renal artery duplex negative for ZEINAB Discharge Information Condition at Discharge: Improved, Stable Follow Up: Weeks (PCP 1 month regarding blood pressure) Disposition/Orders: D/C to Home Scheduled Allopurinol (Allopurinol) 300 Mg Tablet, 1 TAB PO DAILY, #30 Ref 5 (Reported) Entered as Reported by: JAILENE BLANCO on 03/04/182099 Last Action: New Order on 03/04/182099 by JAILENE BLANCO Amlodipine Besylate (Amlodipine Besylate) 10 Mg Tablet, 10 MG PO DAILY for 30 Days, #30 Prescribed by: LARISA LIPSCOMB on 03/06/18 0924 Amlodipine/Valsartan (Exforge 5-160 Mg Tablet) 1 Each Tablet, 1 TAB PO HS, #30 Ref 5 (Reported) Entered as Reported by: Roberto Sheridan on 04/02/151909 Last Action: Converted on 03/04/181857 by LARISA LIPSCOMB Ascorbic Acid (Ascorbic Acid) 500 Mg Tablet, 500 MG PO DAILY, (Reported) Entered as Reported by: JOAN SIMMONS on 11/29/141341 Last Action: Continued on 03/04/181857 by LARISA LIPSCOMB Aspirin (Aspir 81) 81 Mg Tablet.dr, 1 TAB PO DAILY, #30 Ref 5 (Reported) Entered as Reported by: JOAN SIMMONS on 11/29/141341 Last Action: Continued on 03/04/181857 by LARISA LIPSCOMB Atorvastatin Calcium (Atorvastatin Calcium) 40 Mg Tablet, 1 TAB PO DAILY, #30 Ref 5 (Reported) Entered as Reported by: JAILENE BLANCO on 03/04/182099 Last Action: New Order on 03/04/182099 by JAILENE BLANCO Calcium Carb & Cit/Vitamin D3 (Calcium + D3 Er Tablet) 1 Each Tablet.er, 1 EACH PO DAILY, (Reported) Entered as Reported by: JOAN SIMMONS on 11/29/141341 Last Action: Converted on 03/04/181857 by LARISA LIPSCOMB Carvedilol (Carvedilol) 12.5 Mg Tablet, 1 TAB PO BID, #180 Ref 1 (Reported) Entered as Reported by: JAILENE BLANCO on 03/04/182099 Last Action: New Order on 03/04/182099 by JAILENE BLANCO Cholecalciferol (Vitamin D3) (Vitamin D) 1,000 Unit Capsule, 2 CAP PO DAILY, # 30 Ref 3 (Reported) Entered as Reported by: JOAN SIMMONS on 11/29/141341 Last Action: Edited on 03/04/182099 by JAILENE BLANCO Colchicine (Colcrys) 0.6 Mg Tablet, 0.6 MG PO DAILY, #30 Prescribed by: FABRICIO PORTER on 04/07/151127 Last Action: Continued on 03/04/181857 by LARISA LIPSCOMB Flaxseed Oil (Flax Seed Oil) 1,000 Mg Capsule, 1,000 MG PO DAILY, (Reported) Entered as Reported by: JOAN SIMMONS on 11/29/141341 Last Action: Converted on 03/04/181857 by LARISA LIPSCOMB Hydrochlorothiazide (Hydrochlorothiazide Tablet ) 25 Mg Tablet, 25 MG PO DAILY for 30 Days, #30 Prescribed by: LARISA LIPSCOMB on 03/06/18923 Losartan Potassium (Losartan Potassium) 100 Mg Tablet, 100 MG PO DAILY, ( Reported) Entered as Reported by: JAILENE BLANCO on 03/04/182099 Last Action: New Order on 03/04/182099 by JAILENE BLANCO Mirabegron (Myrbetriq) 25 Mg Tab.er.24h, 25 MG PO DAILY, (Reported) Entered as Reported by: Roberto Sheridan on 04/02/151909 Last Action: Converted on 03/04/181857 by LARISA LIPSCOMB Oxybutynin Chloride (Oxybutynin Chloride) 5 Mg Tablet, 1 TAB PO DAILY, #60 Ref 11 (Reported) Entered as Reported by: JAILENE BLANCO on 03/04/182099 Last Action: New Order on 03/04/182099 by JAILENE BLANCO Pantoprazole Sodium (Protonix) 20 Mg Tablet.dr, 40 MG PO DAILY, (Reported) Entered as Reported by: JAILENE BLANCO on 03/04/182099 Last Action: New Order on 03/04/182099 by JAILENE BLANCO Potassium Chloride (Potassium Chloride) 20 Meq Tablet.er, 20 MEQ PO DAILY for 30 Days, #30 Prescribed by: LARISA LIPSCOMB on 03/06/1824 LARISA LIPSCOMB MD Mar 06, 2018 13:25
[2018-03-06 15:00] VITALS: BP 132/82
== END 2018-03-06 18:12 | disposition home or self-care (01) | DRG 305 ==
LOC: ER 14:30 → 6 SOUTH 17:22
PROVIDERS: ADMIT Internal Medicine; ATTEND Internal Medicine
DX: I16.1 Hypertensive emergency (principal); E87.6 Hypokalemia; E55.9 Vitamin D deficiency, unspecified; E78.00 Pure hypercholesterolemia, unspecified; E78.5 Hyperlipidemia, unspecified; H40.9 Unspecified glaucoma; I10 Essential (primary) hypertension; M19.90 Unspecified osteoarthritis, unspecified site; M54.5 Low back pain; I70.1 Atherosclerosis of renal artery; M10.9 Gout, unspecified; K21.9 Gastro-esophageal reflux disease without esophagitis; Z82.3 Family history of stroke; Z82.49 Family history of ischemic heart disease and other diseases of the circulatory system; Z98.1 Arthrodesis status; Z88.5 Allergy status to narcotic agent; Z87.891 Personal history of nicotine dependence
CPT/HCPCS: 36415; 70450; 80048; 80053; 80061; 81001; 83735; 83880; 84439; 84443; 84484; 85025; 85610; 85730; 93005; 93306; 93975; J3475; 97116; 99285-25